=== PATIENT | male | born 1965 | race Caucasian/White ===

== ENCOUNTER 2020-07-25 17:12 | Outpatient (CLI) | payer OTHER | END 2020-07-25 17:13 | disposition home or self-care (01) | LOC: CSHRAD 17:12 | PROVIDERS: ATTEND Psychiatry & Neurology Neurology | DX: M06.869 Other specified rheumatoid arthritis, unspecified knee (principal); M54.2 Cervicalgia; M00.0 Staphylococcal arthritis and polyarthritis; M19.011 Primary osteoarthritis, right shoulder; M47.816 Spondylosis without myelopathy or radiculopathy, lumbar region | CPT/HCPCS: 72100 ==